=== PATIENT | female | born 1990 | race Two or more races ===

== ENCOUNTER 2020-03-20 10:48 | Emergency (ER) | payer OTHER ==
--- NOTE | 2020-03-20 12:26 | ER Document Report ---
ED General - General Chief Complaint: S/S of Possible Stroke Stated Complaint: FACIAL NUMBNESS Time Seen by Provider: 03/20/20 11:28 Primary Care Provider: RICARDO BARNEY FNP [Primary Care Provider] - Follow up as needed - HPI Notes: Patient is a 29-year-old family presents to the emergency department for evaluation. She states that since January she has been having episodes where her eyes rolled back, she gets left-sided facial numbness, sometimes difficulty moving her left side. She states that these are happening every 10 minutes since January. They seem to be getting more frequent. She states they occasionally are associated with a stabbing left parietal pain. She denies any head trauma. No fevers or chills. No nausea or vomiting. She was actually at a neurologist office today when her symptoms came on, so they sent her to the ER for further evaluation. - Related Data Home Medications: celexa, omeprazol, hydroxyzine Past Medical History - General Information source: Patient - Social History Smoking Status: Never Smoker Family History: Reviewed & Not Pertinent Psychiatric Medical History: Reports: Hx Depression Review of Systems - Review of Systems EENT: See HPI Neurological/Psychological: See HPI -: Yes All other systems reviewed and negative Physical Exam - Vital signs Vitals: Resp BP Pulse Ox 15 126/84 H 98 03/20/20 11:00 03/20/20 11:00 03/20/20 11:00 - Notes Notes: This is a 29-year-old female who appears her stated age, in no acute distress. She intermittently stutters, and occasionally was slow to answer, but is awake and alert, cooperative with examiner. Vital signs reviewed, please refer to chart. Head is normocephalic, atraumatic. Pupils equal round, reactive to light. Neck is supple without meningismus. Heart is regular rate and rhythm. Lungs are clear to auscultation bilaterally. Abdomen is soft, nontender, nor moactive bowel sounds throughout. Extremities without cyanosis, clubbing. Posterior calves are nontender. Peripheral pulses are equal. Skin is warm and dry. Patient is awake, alert, oriented x3. Cranial nerves II - XII are grossly intact without focal neurological deficits. Strength is plus 5 out of 5 bilateral upper and lower extremities. Sensation is intact. Reflexes symmetrical. Intact [id number], rapid alternating movements, [id number]. Course - Re-evaluation Re-evalutation: 03/20/20 12:25 Patient presents to the emergency department for evaluation. She was sent in by her neurology office for further evaluation. At this point, patient does not show any focal neurological deficits. At any rate, these of been ongoing intermittently for months. I did review MRI of her head, and of her cervical spine, which was slightly limited. There was some white flare on the MRI head, but no signs of acute infarction. I strongly suspect conversion disorder versus atypical migraines in this patient, the believe outpatient work-up is most appropriate. I would like to talk to the provider who saw her at [facility] neurology, I am awaiting phone call back from them. Otherwise, taking some basic blood work, including urinalysis and drug screen, as well as a noncontrast CT of the skin of the head. Patient is currently stable, her vitals are unremarkable, we will continue to monitor. 03/20/20 15:46 Patient remained stable throughout the course of her stay. We called [facility] neurology multiple times without any answer. I explained to the patient that I suspect she needs an EEG and further testing, perhaps treatment for migraines, but she does not need any acute care in the emergency department. We also talked about the fact that psychiatric issues associated with depression and anxiety could also be contributing to her symptoms. She voiced understanding, and will continue to follow-up with psychiatry. Otherwise, patient is currently stable. She is to follow-up with neurology tomorrow, return to the ED with worsening. - Vital Signs Vital signs: Temp Pulse Resp BP Pulse Ox 99.2 F 53 L 16 122/77 99 03/20/20 11:15 03/20/20 11:31 03/20/20 15:38 03/20/20 15:38 03/20/20 15:38 - Laboratory Result Diagrams: 03/20/20 10:57 03/20/20 10:57 Laboratory results interpreted by me: 03/20/20 10:57 Sodium 136.2 L AST 39 H ALT 61 H Discharge - Discharge Clinical Impression: Facial paresthesia Altered mental status Qualifiers: Altered mental status type: transient alteration of awareness Qualified Code(s): R40.4 - Transient alteration of awareness Condition: Stable Disposition: HOME, SELF-CARE Instructions: Altered Mental Status ([facility]), Migraine Headache ([facility]), Numbness or Paresthesia ([facility]) Additional Instructions: No clear cause was found for your symptoms today. Your CT scan failed to show any signs of acute stroke. You should continue your evaluation with neurology. You should discuss the possibility of migraine medications, the possibility of EEG. Please also continue to seek out care with your psychiatrist. Continue your home medications as prescribed. Return to the emergency department for worsening or new concerning symptoms of any sort. Referrals: RICARDO BARNEY FNP [Primary Care Provider] - Follow up as needed
--- NOTE | 2020-03-20 12:59 | RADIOLOGY REPORT (SQ) ---
EXAM DESCRIPTION: CT HEAD WITHOUT IMAGES COMPLETED DATE/TIME: 03/20/2020 12:34 pm REASON FOR STUDY: Left-sided facial numbness COMPARISON: None. TECHNIQUE: Axial images acquired through the brain without intravenous contrast. Images reviewed wi th bone, brain and subdural windows. Additional sagittal and coronal reconstructions were generated. Images stored on PACS. All CT scanners at this facility use dose modulation, iterative reconstruction, and/or weight based d osing when appropriate to reduce radiation dose to as low as reasonably achievable (ALARA). [facility]: Dose Right [facility]: CareDose [facility]: Dose Right [facility]: Teradose 4D [facility]: Good Works Now RADIATION DOSE: CT Rad equipment meets quality standard of care and radiation dose reduction techniq ues were employed. CTDIvol: 53.2 mGy. DLP: 991 mGy-cm. mGy. LIMITATIONS: None. FINDINGS: VENTRICLES: Normal size and contour. CEREBRUM: No masses. No hemorrhage. No midline shift. No evidence for acute infarction. Normal gra y/white matter differentiation. No areas of low density in the white matter. CEREBELLUM: No masses. No hemorrhage. No alteration of density. No evidence for acute infarction. EXTRAAXIAL SPACES: No fluid collections. No masses. ORBITS AND GLOBE: No intra- or extraconal masses. Normal contour of globe without masses. CALVARIUM: No fracture. PARANASAL SINUSES: No fluid or mucosal thickening. SOFT TISSUES: No mass or hematoma. OTHER: No other significant finding. IMPRESSION: NORMAL BRAIN CT WITHOUT CONTRAST. EVIDENCE OF ACUTE STROKE: NO. COMMENT: Quality ID # [id number]: Final reports with documentation of one or more dose reduction techniques (e.g., Automated exposure control, adjustment of the mA and/or kV according to patient size, use of iterative reconstruction technique) TECHNICAL DOCUMENTATION: JOB ID: [id number] 2010 [employer]- All Rights Reserved Reading location - IP/workstation name: [email or web address]
[2020-03-20 13:29] LABS: ABSOLUTE EOSINOPHILS # (AUTO) 0.1 10^3/uL (0.0-0.6); ABSOLUTE LYMPHOCYTES (AUTO) 2.5 10^3/uL (0.5-4.7); ABSOLUTE MONOCYTES (AUTO) 0.4 10^3/uL (0.1-1.4); ABSOLUTE NEUT (AUTO) 4.1 10^3/uL (1.7-8.2); BASOPHILS % (AUTO) 0.6 % (0-2); EOSINOPHILS % (AUTO) 1.3 % (0-6); HEMATOCRIT 39.1 % (36.0-47.0); HEMOGLOBIN 13.1 g/dL (12.0-15.5); LYMPHOCYTES % (AUTO) 34.9 % (13-45); MEAN CORPUSCULAR HEMOGLOBIN 28.5 pg (27.0-33.4); MEAN CORPUSCULAR HGB CONC 33.5 g/dL (32.0-36.0); MEAN CORPUSCULAR VOLUME 85 fl (80-97); PLATELET COUNT 238 10^3/uL (150-450); RED CELL DISTRIBUTION WIDTH 12.7 % (11.5-14.0); SEGMENTED NEUTROPHILS % (AUTO) 57.2 % (42-78); TOTAL CELLS COUNTED % (AUTO) 100 %; WHITE BLOOD COUNT 7.2 10^3/uL (4.0-10.5)
[2020-03-20 13:37] LABS: ALBUMIN 4.5 g/dL (3.5-5.0); ALKALINE PHOSPHATASE 66 U/L (38-126); ANION GAP 7 (5-19); ASPARTATE AMINO TRANSFERASE 39 U/L (14-36); BILIRUBIN,TOTAL 0.7 mg/dL (0.2-1.3); BLOOD UREA NITROGEN 11 mg/dL (7-20); CALCIUM 9.6 mg/dL (8.4-10.2); CARBON DIOXIDE 27 mmol/L (22-30); CHLORIDE 102 mmol/L (98-107); GLUCOSE 93 mg/dL (75-110); POTASSIUM 4.3 mmol/L (3.6-5.0); TOTAL PROTEIN 7.6 g/dL (6.3-8.2)
[2020-03-20 15:01] LABS: APPEARANCE,URINE CLEAR; BILIRUBIN,URINE NEGATIVE (NEGATIVE); COLOR,URINE YELLOW; GLUCOSE, URINE NEGATIVE (NEGATIVE); KETONES,URINE NEGATIVE (NEGATIVE); LEUKOCYTE ESTERASE,URINE NEGATIVE (NEGATIVE); NITRITE,URINE NEGATIVE (NEGATIVE); PROTEIN,URINE NEGATIVE (NEGATIVE); URINE SPECIFIC GRAVITY 1.012; UROBILINOGEN,URINE NEGATIVE mg/dL (<2.0)
[2020-03-20 15:27] LABS: URINE AMPHETAMINES SCREEN NEGATIVE; URINE BARBITURATES SCREEN NEGATIVE; URINE BENZODIAZEPINES SCREEN NEGATIVE; URINE COCAINE SCREEN NEGATIVE; URINE MARIJUANA (THC) SCREEN NEGATIVE; URINE METHADONE SCREEN NEGATIVE; URINE PHENCYCLIDINE SCREEN NEGATIVE
[2020-03-20 15:41] VITALS: BP 122/77
--- NOTE | 2020-03-20 20:00 | EKG REPORT ---
SEVERITY:- BORDERLINE ECG - SINUS RHYTHM INFERIOR Q WAVES, PROBABLY NORMAL VARIATION : Confirmed by: Cj Goodwin MD 20-Mar-2020 19:59:57
== END 2020-03-20 15:56 | disposition home or self-care (01) ==
LOC: ER 10:48
DX: R40.4 Transient alteration of awareness (principal); R20.0 Anesthesia of skin; Z79.899 Other long term (current) drug therapy
CPT/HCPCS: 36415; 70450; 80053; 80307; 81001; 84703; 85025; 93005; 93010; 99284